=== PATIENT | male | born 1965 | race Caucasian/White ===

== ENCOUNTER 2024-09-29 09:56 | Day surgery (SDC) | payer MEDICARE ==
[~2024-09-29] VITALS: Ht 180.3 cm; Wt 96.6 kg
[2024-09-29] MEDS ORDERED: LR 1,000 ML IV SCH (10:30)
[2024-09-29] MEDS ORDERED: fentaNYL 100 MCG/2 ML INJECTION As Ordered ONE (11:02)
[2024-09-29] MEDS ORDERED: MIDAZOLAM INJ 2 MG/2 ML VIAL As Ordered ONE (11:02)
[2024-09-29] MEDS ORDERED: dexAMETHasone 4 MG/ML 1 ML VIAL As Ordered ONE (11:03)
[2024-09-29] MEDS ORDERED: ACETAMINOPHEN 1000MG/100ML IV BAG As Ordered ONE (11:03)
[2024-09-29] MEDS ORDERED: ONDANSETRON 4MG 2ML VIAL As Ordered ONE (11:03)
[2024-09-29] MEDS ORDERED: propofoL 200 MG/20 ML VIAL As Ordered ONE (11:05)
[2024-09-29] MEDS ORDERED: LIDOCAINE 2% 100 MG/5 ML SDV (FOR ANES.) As Ordered ONE (11:05)
[2024-09-29] MEDS: SCOPOLAMINE 1MG TRANSDERMAL PATCH TOP ONE (11:59)
[2024-09-29] MEDS ORDERED: PHENYLephrine 500MCG 5ML (100MCG/ML) SYRINGE As Ordered ONE (13:09)
[2024-09-29] MEDS: EPINEPHrine 1 MG/ML INJ 30 ML MD-VIAL As Ordered ONE (13:30)
[2024-09-29] MEDS: CIPRODEX OTIC SUSP 7.5 ML As Ordered ONE (13:30)
[2024-09-29] MEDS ORDERED: ePHEDrine SULFATE 25 MG/5 ML SYRINGE As Ordered ONE (13:34)
[2024-09-29] MEDS ORDERED: HYDROmorphone HCL 2 MG/ML 1 ML VIAL As Ordered ONE (14:08)
[2024-09-29] MEDS: LIDOCAINE W/EPINEPHrine 1% 20 ML VIAL As Ordered ONE (14:20)
[2024-09-29] MEDS ORDERED: fentaNYL 100 MCG/2 ML INJECTION IV PRN (14:25)
[2024-09-29] MEDS ORDERED: oxyCODONE 5MG TAB PO PRN (14:25)
[2024-09-29] MEDS: ONDANSETRON 4MG 2ML VIAL IV PRN (15:00)
[2024-09-29] MEDS: METOCLOPRAMIDE INJ 10 MG/2 ML VIAL IV PRN (15:22)
[2024-09-29] MEDS: PROMETHAZINE 25MG/ML 1ML VIAL IV PRN (16:00)
[2024-09-29 18:30] VITALS: BP 131/85; TEMP 97.3; O2SAT 99
== END 2024-09-29 18:35 | disposition home or self-care (01) ==
LOC: M SDC 09:56
PROVIDERS: ATTEND Otolaryngology
DX: H72.03 Central perforation of tympanic membrane, bilateral (principal); J45.909 Unspecified asthma, uncomplicated; F17.220 Nicotine dependence, chewing tobacco, uncomplicated
CPT/HCPCS: 20922; 69631; G0463; J0131; J0171; J1100; J1171; J2250; J2371; J2405; J2550; J2765; J3010